=== PATIENT | male | born 1995 | race Caucasian/White ===

== ENCOUNTER 2017-10-16 18:50 | Emergency (ER) | payer OTHER ==
[~2017-10-16] VITALS: Ht 182.9 cm; Wt 113.4 kg
[~2017-10-16 18:50] MED LIST: ALBU90OI INH; BECL40OI INH; CITA20 PO; Crutch1 EACH MISC; FAMO20 PO; NABU500 PO; OMEP20ER PO; RANI150 PO; Ultram50 MG PO; ZPACK
[2017-10-16] MEDS ORDERED: Augmentin 875-1 EACH PO (20:48)
== END 2017-10-16 21:07 | disposition home or self-care (01) ==
LOC: ER 18:50
DX: S61.051A Open bite of right thumb without damage to nail, initial encounter (principal); F41.9 Anxiety disorder, unspecified; Z79.899 Other long term (current) drug therapy; W54.0XXA Bitten by dog, initial encounter
CPT/HCPCS: 99283